=== PATIENT | female | born 1975 | race African-American/Black ===

== ENCOUNTER 2023-08-19 00:15 | Emergency (ER) | payer MEDICAID, OTHER ==
[~2023-08-19] VITALS: Ht 167.6 cm; Wt 102.0 kg
[2023-08-19 00:20] VITALS: BP 186/107; PULSE 89; RESP 16; TEMP 98.1; O2SAT 98
[2023-08-19] MEDS ORDERED: KETOROLAC 15MG/ML VIAL IM ONE (00:45)
== END 2023-08-19 02:09 | disposition left against medical advice (07) ==
LOC: ER 00:15
DX: M79.605 Pain in left leg (principal); J45.909 Unspecified asthma, uncomplicated; V98.8XXA Other specified transport accidents, initial encounter; Y93.89 Activity, other specified; Y92.89 Other specified places as the place of occurrence of the external cause; Y99.8 Other external cause status
CPT/HCPCS: 99283